=== PATIENT | female | born 1995 | race Caucasian/White ===

== ENCOUNTER 2021-09-27 18:14 | Inpatient (IN) ==
[2021-09-27] MEDS ORDERED: SODIUM CHLORIDE 0.9% 1,000 ML IV STA (19:24)
[2021-09-27] MEDS ORDERED: ONDANSETRON 4 MG/2 ML VIAL IV STA (19:24)
[2021-09-27 20:18] LABS: Basophils % 0.4 % (0.0-0.8); Eosinophils # 0.1 10*3/uL (0.0-0.87); Eosinophils % 0.7 % (0.00-10.9); Hematocrit 28.1 VOL% (35.7-47.0); Hemoglobin 8.6 GM/DL (12.0-16.0); Immature Granulocytes % 1.3 %; Lymphocytes # 1.8 10*3/uL (1.4-4.0); Lymphocytes % 23.9 % (21.3-54.2); Mean Corpuscular HGB Conc 30.6 GM/DL (32-36); Mean Corpuscular Volume 78.5 FL (87-102); Mean Platelet Volume 8.4 FL (9.6-12.0); Monocytes % 13.3 % (1.7-12.7); NRBC # 0.02 10*3/uL; Neutrophils % 60.4 % (38.7-73.9); Platelet Count 657 T/CUMM (130-400); Red Blood Count 3.58 MC/CUMM (3.8-5.5); Red Cell Distribution Width 17.2 % (9.3-17.3); White Blood Count 7.5 T/CUMM (4-12)
[2021-09-27 20:38] LABS: Alanine Aminotransferase 12 U/L (13-56); Albumin 1.8 G/DL (3.4-5.0); Alkaline Phosphatase 65 U/L (45-117); Amylase 32 U/L (25-115); Aspartate Amino Transferase 8 U/L (0-37); Bilirubin,Total < 0.39 MG/DL (0.20-1.00); Blood Urea Nitrogen 4 MG/DL (7-18); Calcium 7.8 MG/DL (8.5-10.1); Carbon Dioxide 29 MMOL/L (21-32); Chloride 106 MMOL/L (98-107); Estimated Glom Filtration Rate 127 ML/MIN; Glucose 78 MG/DL (74-106); Osmolality,Calculated 268.8 MOS/KG (273-304); Potassium 3.7 MMOL/L (3.5-5.1); Sodium 137 MMOL/L (136-145)
[2021-09-27 20:39] LABS: Lymphocytes 20 % (20-55); Metamyelocytes 1 %; Nucleated Red Blood Cells 1 (0-5); Total Cells Counted 100
[2021-09-27 20:40] LABS: Hypochromia 1+; Platelet Estimate Increased; Polychromasia Slight
[2021-09-27 20:41] LABS: Anisocytosis 1+; Microcytosis 1+
[2021-09-27 21:08] LABS: Bacteria,Urine Occasional /HPF (Few); Mucus,Urine Moderate /LPF (Occasional); RBC,Urine 1 /HPF (0-4); Squamous Epithelial Cell,Urine Occasional /HPF (0-10)
[2021-09-27 21:10] LABS: Bilirubin,Urine Negative (Negative); Glucose,Urine (UA) Negative (Negative); Ketones,Urine Negative (Negative); Nitrite,Urine Negative (Negative); Protein,Urine Negative (Negative); Urine Appearance Clear (Clear); Urine Color Yellow (Yellow); Urine Specific Gravity 1.015 (1.001-1.035)
[2021-09-27 21:11] LABS: Blood, Urine Trace mg/dL (Negative); Urine Urobilinogen 0.2 eU/dL (<2.0)
[2021-09-27] MEDS ORDERED: CIPROFLOXACIN INJ 400 MG/200 ML PREMIX IV STA (21:28)
[2021-09-27] MEDS ORDERED: GLUCAGON 1 MG VIAL IM PRN (21:29)
[2021-09-27] MEDS ORDERED: ONDANSETRON 4 MG/2 ML VIAL IV PRN (21:29)
[2021-09-27] MEDS ORDERED: guaiFENesin/DM ER 600-30 MG TABLET PO PRN (21:29)
[2021-09-27] MEDS ORDERED: diphenhydrAMINE CAP 25 MG CAPSULE PO PRN (21:29)
[2021-09-27] MEDS ORDERED: DEXTROSE 10% 250 ML BAG IV PRN (21:29)
[2021-09-27] MEDS ORDERED: hydrALAZINE 20 MG/1 ML VIAL IV PRN (21:29)
[2021-09-27] MEDS ORDERED: NICOTINE 21 MG/24 HR PATCH TRANSDERM PRN (21:29)
[2021-09-27] MEDS ORDERED: ACETAMINOPHEN 325 MG TABLET PO PRN (21:29)
[2021-09-27] MEDS: SODIUM CHLORIDE 0.9% 1,000 ML IV SCH (21:39)
[2021-09-28 05:12] LABS: Calcium 7.4 MG/DL (8.5-10.1); Osmolality,Calculated 273.5 MOS/KG (273-304); Potassium 3.2 MMOL/L (3.5-5.1)
[2021-09-28 05:41] LABS: Basophils % 0.4 % (0.0-0.8); Eosinophils # 0.1 10*3/uL (0.0-0.87); Eosinophils % 1.1 % (0.00-10.9); Hematocrit 20.8 VOL% (35.7-47.0); Hemoglobin 6.5 GM/DL (12.0-16.0); Immature Granulocytes % 1.5 %; Immature Granulocytes Absolute 0.08 #; Lymphocytes # 1.9 10*3/uL (1.4-4.0); Lymphocytes % 36.7 % (21.3-54.2); Mean Corpuscular HGB Conc 31.3 GM/DL (32-36); Mean Corpuscular Volume 78.2 FL (87-102); Mean Platelet Volume 8.3 FL (9.6-12.0); Monocytes # 0.7 10*3/uL (0.11-0.8); Monocytes % 13.8 % (1.7-12.7); Neutrophils % 46.5 % (38.7-73.9); Platelet Count 609 T/CUMM (130-400); Red Blood Count 2.66 MC/CUMM (3.8-5.5); Red Cell Distribution Width 17.1 % (9.3-17.3); White Blood Count 5.3 T/CUMM (4-12)
[2021-09-28] MEDS ORDERED: SODIUM CHLORIDE 0.9% 1,000 ML IV PRN (05:52)
[2021-09-28 05:57] LABS: Band Neutrophils 5 % (0-10); Eosinophils 2 % (0-10); Lymphocytes 34 % (20-55); Platelet Estimate Increased; Total Cells Counted 100
[2021-09-28 05:58] LABS: Hypochromia 2+; Microcytosis 1+
[2021-09-28] MEDS ORDERED: POTASSIUM CHLORIDE 20 MEQ TABLET PO PRN (07:39)
[2021-09-28] MEDS: PANTOPRAZOLE 40 MG TABLET PO SCH (11:43)
[2021-09-28] MEDS: SODIUM CHLORIDE 0.9% 1,000 ML IV SCH ×2 (13:20→21:14)
[2021-09-28] MEDS: cefTRIAXone 1,000 MG in SODIUM CHLORIDE 0.9% 100 ML IV SCH (13:53)
[2021-09-28] MEDS: MORPHINE 2 MG/1 ML SYRINGE IV PRN (21:15)
[2021-09-28] MEDS: ZALEPLON 5 MG CAPSULE PO PRN (21:15)
[2021-09-29] MEDS: SODIUM CHLORIDE 0.9% 1,000 ML IV SCH ×3 (00:18→17:11)
[2021-09-29 06:31] LABS: Basophils % 0.7 % (0.0-0.8); Eosinophils # 0.1 10*3/uL (0.0-0.87); Eosinophils % 1.5 % (0.00-10.9); Immature Granulocytes % 1.9 %; Immature Granulocytes Absolute 0.11 #; Lymphocytes # 1.7 10*3/uL (1.4-4.0); Lymphocytes % 28.8 % (21.3-54.2); Mean Corpuscular HGB Conc 32.4 GM/DL (32-36); Mean Corpuscular Volume 79.7 FL (87-102); Mean Platelet Volume 8.1 FL (9.6-12.0); Monocytes # 0.6 10*3/uL (0.11-0.8); Monocytes % 9.7 % (1.7-12.7); Neutrophils % 57.4 % (38.7-73.9); Platelet Count 586 T/CUMM (130-400); Red Cell Distribution Width 17.4 % (9.3-17.3); White Blood Count 5.9 T/CUMM (4-12)
[2021-09-29 06:35] LABS: Hemoglobin 9.4 GM/DL (12.0-16.0); Red Blood Count 3.64 MC/CUMM (3.8-5.5)
[2021-09-29 06:48] LABS: Calcium 6.8 MG/DL (8.5-10.1); Osmolality,Calculated 273.4 MOS/KG (273-304); Potassium 3.4 MMOL/L (3.5-5.1)
[2021-09-29 07:02] LABS: Hypochromia 2+; Platelet Estimate Increased; Polychromasia Few
[2021-09-29] MEDS: PANTOPRAZOLE 40 MG TABLET PO SCH (09:31)
[2021-09-29] MEDS: cefTRIAXone 1,000 MG in SODIUM CHLORIDE 0.9% 100 ML IV SCH (12:59)
[2021-09-29 13:22] LABS: HIV Antigen/Antibody Result Nonreactive (Nonreactive); Hepatitis B Core IgM Quant 0.11 Index; Hepatitis B Surface Ag Quant < 0.10 Index; Hepatitis B Surface Ag Result Non-Reactive (NonReactive); Hepatitis C Virus Ab Quant 0.04 Index; Hepatitis C Virus Ab Result Non-Reactive (NonReactive)
[2021-09-29] MEDS ORDERED: POTASSIUM CHLORIDE 20 MEQ TABLET PO ONE (17:20)
[2021-09-29] MEDS: MORPHINE 2 MG/1 ML SYRINGE IV PRN ×2 (17:56→22:58)
[2021-09-29] MEDS: HYOSCYAMINE 0.125 MG TABLET PO PRN (17:56)
[2021-09-30] MEDS: SODIUM CHLORIDE 0.9% 1,000 ML IV SCH ×5 (02:46→20:33)
[2021-09-30 04:06] LABS: Basophils % 0.6 % (0.0-0.8); Eosinophils # 0.1 10*3/uL (0.0-0.87); Eosinophils % 1.6 % (0.00-10.9); Hematocrit 28.4 VOL% (35.7-47.0); Hemoglobin 9.2 GM/DL (12.0-16.0); Lymphocytes # 1.8 10*3/uL (1.4-4.0); Lymphocytes % 28.8 % (21.3-54.2); Mean Corpuscular HGB Conc 32.4 GM/DL (32-36); Mean Platelet Volume 8.2 FL (9.6-12.0); Monocytes # 0.8 10*3/uL (0.11-0.8); Monocytes % 12.6 % (1.7-12.7); Neutrophils % 54.6 % (38.7-73.9); Platelet Count 662 T/CUMM (130-400); Red Blood Count 3.55 MC/CUMM (3.8-5.5); Red Cell Distribution Width 17.8 % (9.3-17.3); White Blood Count 6.2 T/CUMM (4-12)
[2021-09-30 04:29] LABS: Band Neutrophils 2 % (0-10); Calcium 6.3 MG/DL (8.5-10.1); Eosinophils 3 % (0-10); Hypochromia 1+; Lymphocytes 21 % (20-55); Microcytosis 1+; Platelet Estimate Increased; Potassium 3.1 MMOL/L (3.5-5.1)
[2021-09-30] MEDS: MORPHINE 2 MG/1 ML SYRINGE IV PRN ×3 (06:00→21:37)
[2021-09-30] MEDS: PANTOPRAZOLE 40 MG TABLET PO SCH (09:29)
[2021-09-30] MEDS: HYOSCYAMINE 0.125 MG TABLET PO PRN ×3 (09:29→23:55)
[2021-09-30] MEDS: cefTRIAXone 1,000 MG in SODIUM CHLORIDE 0.9% 100 ML IV SCH (13:54)
[2021-09-30] MEDS: ZALEPLON 5 MG CAPSULE PO PRN (23:55)
[2021-10-01] MEDS: MORPHINE 2 MG/1 ML SYRINGE IV PRN (03:21)
[2021-10-01] MEDS: SODIUM CHLORIDE 0.9% 1,000 ML IV SCH (04:33)
[2021-10-01 05:29] LABS: Basophils % 0.6 % (0.0-0.8); Eosinophils # 0.1 10*3/uL (0.0-0.87); Eosinophils % 1.5 % (0.00-10.9); Hematocrit 29.7 VOL% (35.7-47.0); Hemoglobin 9.3 GM/DL (12.0-16.0); Immature Granulocytes % 1.9 %; Immature Granulocytes Absolute 0.12 #; Mean Corpuscular HGB Conc 31.3 GM/DL (32-36); Mean Corpuscular Volume 82.3 FL (87-102); Mean Platelet Volume 8.1 FL (9.6-12.0); Monocytes # 0.8 10*3/uL (0.11-0.8); Platelet Count 701 T/CUMM (130-400); Red Blood Count 3.61 MC/CUMM (3.8-5.5); Red Cell Distribution Width 18.5 % (9.3-17.3); White Blood Count 6.2 T/CUMM (4-12)
[2021-10-01 05:54] LABS: Calcium 6.7 MG/DL (8.5-10.1); Osmolality,Calculated 280.8 MOS/KG (273-304); Potassium 3.7 MMOL/L (3.5-5.1)
[2021-10-01 08:08] LABS: Free T4 (Free Thyroxine) 0.4 NG/DL (0.76-1.46)
[2021-10-01 08:47] VITALS: BP 103/68
[2021-10-01] MEDS: PANTOPRAZOLE 40 MG TABLET PO SCH (09:13)
== END 2021-10-01 13:01 | disposition home or self-care (01) | DRG 372 ==
LOC: N.ED 18:14 → SUATTDRO 21:29 → N.EDINP 21:29 → N.TELEN 09-28 00:45
PROVIDERS: ADMIT Internal Medicine; ATTEND Internal Medicine